=== PATIENT | male | born 1955 | race Caucasian/White ===

== ENCOUNTER 2017-07-16 06:17 | Day surgery (SDC) | payer MEDICAID ==
[~2017-07-16] VITALS: Ht 188 cm; Wt 129.3 kg
[2017-07-16] MEDS ORDERED: LACTATED RINGERS 1,000 ML IV SCH (08:15)
[2017-07-16] MEDS ORDERED: MORPHINE SULFATE/PF 1MG/ML 10ML AMP ONE (08:52)
[2017-07-16] MEDS ORDERED: SKIN ADHESIVE 0.7 GM EA TOP ONE (08:53)
[2017-07-16] MEDS ORDERED: BACITRACIN ZINC 15GM TUBE TOP ONE (08:53)
[2017-07-16] MEDS ORDERED: EPINEPHRINE 1:1000 1 MG/ML AMP ONE (08:53)
[2017-07-16] MEDS ORDERED: BUPIVACAINE/EPINEPHRINE/PF 0.25%/0.0005 30ML ONE (08:54)
[2017-07-16] MEDS ORDERED: ALBU18HF2 IH (10:06)
[2017-07-16] MEDS ORDERED: LISI40TA4 PO (10:06)
[2017-07-16] MEDS ORDERED: NAPR220C15 PO (10:06)
[2017-07-16] MEDS ORDERED: FISH1CAP2 PO (10:06)
[2017-07-16] MEDS ORDERED: MIDAZOLAM HCL 2 MG/2 ML VIAL ONE (11:00)
[2017-07-16] MEDS ORDERED: FENTANYL CITRATE/PF 50MCG/ML 2ML VIAL ONE ×2 (11:05→12:12)
[2017-07-16] MEDS ORDERED: PROPOFOL 200MG/20ML VIAL IV ONE (11:06)
[2017-07-16] MEDS ORDERED: ROCURONIUM BROMIDE 10MG/ML VIAL 5ML IV ONE ×2 (11:07→12:03)
[2017-07-16] MEDS ORDERED: DEXAMETHASONE 4MG/ML 1ML VIAL ONE (11:25)
[2017-07-16] MEDS ORDERED: CEFAZOLIN SODIUM 1000MG/VIAL ONE (11:27)
[2017-07-16] MEDS ORDERED: SODIUM CHLORIDE 0.9% 1,000 ML IV SCH (11:48)
[2017-07-16] MEDS ORDERED: HYDROMORPHONE HCL/PF 2MG/ML CPJ IV PRN (12:00)
[2017-07-16] MEDS ORDERED: ONDANSETRON HCL 4MG/2ML VIAL IV PRN ×2 (12:00→14:15)
[2017-07-16] MEDS ORDERED: ONDANSETRON HCL 4MG/2ML VIAL ONE (13:28)
[2017-07-16] MEDS ORDERED: NEOSTIGMINE METHYLSULFATE 1MG/ML 10 ML VIAL ONE (13:33)
[2017-07-16] MEDS ORDERED: GLYCOPYRROLATE 0.2 MG/ML 2ML VIAL ONE (13:33)
[2017-07-16] MEDS ORDERED: HYDROCODONE/ACETAMINOPHEN 10/325MG TABLET PO PRN (14:15)
[2017-07-16 14:42] VITALS: BP 167/93
== END 2017-07-16 16:30 ==
LOC: OR 06:17
PROVIDERS: ATTEND Orthopaedic Surgery
DX: M75.101 Unspecified rotator cuff tear or rupture of right shoulder, not specified as traumatic (principal); M75.21 Bicipital tendinitis, right shoulder; M19.011 Primary osteoarthritis, right shoulder; F17.210 Nicotine dependence, cigarettes, uncomplicated; I10 Essential (primary) hypertension; J45.909 Unspecified asthma, uncomplicated; F12.10 Cannabis abuse, uncomplicated
CPT/HCPCS: 29824; 29826; 29827; 88304; 88311; 93005; C1713; J0171; J0690; J1100; J2250; J2405; J2710; J3010; J3490; J7120; A4565; J2274; J2704

== ENCOUNTER 2019-10-14 13:42 | Emergency (ER) | payer MEDICAID ==
[~2019-10-14] VITALS: Ht 188 cm; Wt 143.0 kg
[~2019-10-14 13:42] MED LIST: ALBU18HF2 IH; FISH1CAP2 PO; LISI40TA4 PO; NAPR220C15 PO
[2019-10-14 14:57] VITALS: BP 128/88
== END 2019-10-14 19:10 | disposition left against medical advice (07) ==
LOC: ER 13:42
DX: R06.02 Shortness of breath (principal); Z53.21 Procedure and treatment not carried out due to patient leaving prior to being seen by health care provider